=== PATIENT | female | born 1990 | race Caucasian/White ===

== ENCOUNTER 2024-03-13 06:39 | Emergency (ER) | payer OTHER, SELFPAY ==
--- NOTE | ~2024-03-13 | XR_ITS ---
EXAMINATION: XR ankle LT min 3V DATE: 03/13/2024 08:15 INDICATION: Ecchymosis at the ankle. TECHNIQUE: 4 views of left ankle were obtained. COMPARISON: None. FINDINGS: Alignment is normal. There is a chip fracture of lateral process of the talus. Joint spaces are normal. There is ankle soft tissue swelling. IMPRESSION: 1. Chip fracture of lateral process of the talus. Reviewed, dictated and finalized at location A.
[2024-03-13 06:46] VITALS: BP 134/77; PULSE 115; RESP 18; TEMP 36.4; O2SAT 100
--- NOTE | 2024-03-13 07:02 | ED.LOWEXIN ---
HPI - Extremity Injury (Lower) General Chief Complaint: Extremity Injury, Lower Stated Complaint: L ankle pain Time Seen by Provider: 03/13/24 07:00 Source: patient Mode of arrival: ambulatory Limitations: no limitations History of Present Illness HPI Narrative: Patient presents with complaint of left ankle pain. She is concerned for sprain versus a fracture. She missed a step while walking down stairs on Monday and fell well inverting her ankle, landing with the lateral aspect of her malleolus towards the ground. She has been trying ibuprofen and ice and elevating it and has been using a boot that she had from a previous injury. Not complaining of any foot pain or any proximal calf pain Related Data Allergies Allergy/AdvReac Type Severity Reaction Status Date / Time No Known Allergies Allergy Verified 03/13/24 06:53 Exam Narrative: GENERAL: Well-appearing, well-nourished, and in no acute distress. HEAD: Normocephalic, atraumatic. EYES: Non injected, non icteric ENT: Nares clear, no rhinorrhea or epistaxis. NECK: Supple. CHEST: Speaking in full sentences. No respiratory distress. HEART: Regular rate and rhythm. . ABDOMEN: Soft, nondistended. EXTREMITIES: Ecchymoses distal to medial and lateral malleoli of the left ankle. No ecchymosis along plantar or dorsal aspect of foot. Patient is able to demonstrate 5/5 strength with left ankle dorsiflexion plantar flexion. DP pulse palpable. Mild edema. No pain at the proximal fibula/tibia. Compartments soft. SKIN: Warm, dry, no rash. NEURO: No focal deficits. Alert and oriented x3. PSYCH: Normal mood and affect. Course Vital Signs Vital signs: Vital Signs Temperature 97.6 F 03/13/24 06:46 Pulse Rate 115 H 03/13/24 06:46 Respiratory Rate 18 03/13/24 06:46 Blood Pressure 134/77 03/13/24 06:46 Pulse Oximetry 100 03/13/24 06:46 Oxygen Delivery Room Air 03/13/24 06:46 Temperature 97.6 F 03/13/24 06:46 Pulse Rate 115 H 03/13/24 06:46 Respiratory Rate 18 03/13/24 06:46 Blood Pressure 134/77 03/13/24 06:46 Pulse Oximetry 100 03/13/24 06:46 Oxygen Delivery Room Air 03/13/24 06:46 MDM - Extremity Injury (Lower) MDM Narrative Medical decision making narrative: Patient presents with left ankle pain along medial and lateral malleoli and she has ecchymosis distal to both of these joint areas. Otherwise neurovascularly intact. In the emergency department she is afebrile with vital signs notable for tachycardia. Patient given analgesic medication. Initially ordered Merced the patient expresses concern about ability to drive to the nurse this will change to acetaminophen. Will defer obtaining imaging of foot or proximal calf given no complaint of pain here and none on exam. Patient does have a talus lateral chip fracture. Short-leg cast will be applied attempting to maintain the integrity of the longitudinal arch. Patient does note that she previously saw an orthopedic surgeon for hand injury epinephrine ham. She is provided [id number] prescriptions for acetaminophen and NSAIDs as well as Merced tablets for breakthrough pain. Attempted to review [facility] but database did not load. Discharged home in stable condition and provided orthopedic contact information referral. Differential Diagnosis Differential diagnosis: Likely ankle sprain and strain, ankle fracture and other (Considered Maisonneuve or Lisfranc injury) Imaging Data Radiologist's impression: Impressions Ankle X-Ray 03/13/24 08:18 IMPRESSION: 1. Chip fracture of lateral process of the talus. Discharge Plan Discharge Clinical Impression: Nondisplaced avulsion fracture (chip fracture) of left talus, initial encounter for closed fracture Patient Disposition: Home, Self-Care Condition: Stable Instructions: Antibiotic Form, Ankle Fracture (DC), Narcotic Safety (ED), Splint Care (ED) Additional Instructions: You do have a small chip
[2024-03-13] MEDS: ACETAMINOPHEN 500 MG TABLET 1000 MG PO (07:30)
== END 2024-03-13 09:18 | disposition home or self-care (01) ==
PROVIDERS: Emergency Provider Student in an Organized Health Care Education/Training Program
DX: S92.155A Nondisplaced avulsion fracture (chip fracture) of left talus, initial encounter for closed fracture (principal); W10.9XXA Fall (on) (from) unspecified stairs and steps, initial encounter
CPT/HCPCS: 29515; 73610; 99284; A9270

== ENCOUNTER 2024-06-04 14:00 | Outpatient (RCR) | payer OTHER, SELFPAY ==
--- NOTE | 2024-04-25 13:32 | BUPTOPEVAL1 ---
Assessment and note entered by Marlene Ratliff, PT Evaluation Information Assessment Status Evaluation Diagnosis sprain unspec ligament left ankle ICD-10 Condition Codes (PT) M25.572,Weakness R53.1 Other ICD-10 Condition Codes ( stiffness in joints of left ankle and foot PT) Onset February 2024 Subjective Information Mid February, going down steps, missed last two steps, landed on left foot and rolled ankle inwards. Had immediate swelling and pain. Classified as sprain wiht avulsion of fibula. Was in walking boot 6 weeks Came out of walking boot 04/23/24 PLOF active individual, did prior volleyball for fun Reported Pain Level Pain Score 0: Self Report Assessment PT Clinical Summary Pt presents s/p severe left ankle sprain with avulsion of fibula ~ 6 weeks ago. She wore a walking boot for this time and just returned to normal shoes 2 days ago. Pain currently ranges from 0-4/10 however has not returned to high level function. She demos decreased active and passive ROM with capsular end-feels, decreased strength, decreased balance LLE compared to RLE. Pt PLOF including running and jumping. Pt will greatly benefit from physical therapy to improved ROM, strengthen within normal ROM, progress static and dynamic stability to return to pt's PLOF. Plan of Care Interventions Electrical Stimulation,Hot Pack/Cold Pack,Manual Therapy,Neuro Re-education,Therapeutic Activities, Therapeutic Exercise,Self-Care/Home Management, Ultrasound,Other Other Interventions Taping, IASTM PT Services Indicated Yes Treatment Frequency and 1-2x weekly x 10 visits Duration These treatments will address the objective and functional deficits as defined above. The patient will be advanced safely and appropriately in order for the patient to progress towards his/her prior level of function. Additional exercises will be introduced and as well as a comprehensive home exercise program upon discharge, if needed, ?to ensure carryover of functional gains achieved in the clinic. This treatment plan has been reviewed and agreement upon by the patient.
--- NOTE | 2024-04-25 13:32 | OPREHPOC ---
Outpatient Therapy Plan of Care This is a Multidisciplinary Plan of Care that may contain components documented by all disciplines (PT, OT, and ST.) PT Problem 1 PT Problem #1 Knowledge Deficit PT Goal 1 Goal / Goal Update Pt will be independent in HEP Pt will verbalize understanding of diagnosis and prognosis Target Visit 5 PT Problem 2 PT Problem #2 Pain PT Goal 1 Goal / Goal Update Pt will report greatest pain level at 2/10 or less to improve ADLs and activities Target Visit 5 PT Goal 2 Goal / Goal Update Pt will report resolution of pain to return to PLOF Target Visit 10 PT Problem 3 PT Problem #3 Impaired Strength PT Goal 1 Goal / Goal Update Pt will demo 4/5 strength L ankle in all tested planes Target Visit 5 PT Goal 2 Goal / Goal Update Pt will demo 5/5 strength L ankle in all tested planes Target Visit 10
--- NOTE | 2024-05-23 15:07 | PCPTNOTE ---
Patient called & cancelled scheduled appointment this date due to small flare up of injury.
--- NOTE | 2024-06-04 14:41 | PTOPDC ---
Assessment and note entered by Marlene Ratliff, PT Evaluation Information Assessment Status Discharge Diagnosis sprain unspec ligament left ankle ICD-10 Condition Codes (PT) M25.572,Weakness R53.1 Other ICD-10 Condition Codes ( stiffness in joints of left ankle and foot PT) Onset February 2024 Subjective Information self-perceived improvement: 75% Feels still has strength deficit and needs to focus on stretching in specific directions and strengthening to stabilize Reported Pain Level Pain Score 0: Self Report Additional Pain Score Comments Goes up to a 3/10 with standing long periods and being on it all day but is manageable with ice. Assessment PT Clinical Summary Pt has attended therapy consistently for her left ankle pain, and weakness. Today she shows significantly improved ROM in all planes, improved strength, and improved balance/stability with single leg testing. Her gait abnormality has resolved completely and she feels 75% improved overall. She has not performed her high level volleyball type activities, but she feels confident in her knowledge of her exercises and deficits to continue her program independently. She is 100% functional in her ADLs, and work related activities with pain at it's greatest rating at 3/10. Thus patient is being discharged for completion of program. Plan of Care PT Services Indicated No
== END 2024-06-07 10:50 | disposition home or self-care (01) ==
LOC: ANHHIPT 14:00
PROVIDERS: Visit Provider Orthopaedic Surgery
DX: S93.402A Sprain of unspecified ligament of left ankle, initial encounter (principal)
CPT/HCPCS: 97014; 97110; 97112; 97140; 97161; 97750; G0283